=== PATIENT | female | born 1975 | race Caucasian/White ===

== ENCOUNTER → 2017-03-20 | Day surgery (SDC) | payer OTHER ==
[~2017-03-20] VITALS: Ht 162.6 cm; Wt 63.5 kg
--- NOTE | 2017-03-20 11:33 | Operative Report ---
Operative/Inv Procedure Report Surgery Date: 03/20/17 Name of Procedure: Excision displaced fracture right small finger proximal phalangeal head (ulnar condyle). Pre-Operative Diagnosis: Displaced fracture ulnar condyle right small finger proximal phalanx. Post-Operative Diagnosis: Same. Estimated Blood Loss: scant Surgeon/Biological Scientist: SULTANA SCOTT MD Anesthesia: laryngeal mask airway Monitors: EKG/BP/Oxygen Saturation/BIS IV Fluids: Lactated Ringer's. Implants: None. Urine Output: None. Drains: None. Specimens: Ulnar condyle displaced proximal phalanx fracture fragments sent to pathology for histopathological documentation. Microbiology: None. Tourniquet: 17 minutes at 250 mmHg. Complications: None known. Condition: Stable. Operative Indication: The patient is a 41-year-old [id number] female who sustained a trip and fall in a gym jamming the tip of the right small finger on the ground to prevent herself from falling. She did have immediate small finger pain and developed swelling and bruising shortly thereafter. She was eventually seen in the [facility] emergency room where x-rays revealed a fracture of the ulnar condyle of the right small finger proximal phalanx. The patient's finger was splinted with an AlumaFoam finger splint. She followed up with me in the office on an outpatient basis. I did recommend that we get a CAT scan of the finger to better delineate the size and position of the displaced fracture fragment which appeared to be lying against the volar cortex of the distal aspect of the proximal phalanx roughly at the level of the distal shaft-neck junction. The CAT scan did confirm the impression from plain x-rays that the displaced fracture fragment was displaced proximally and volarly against the volar cortex of the distal end of the proximal phalanx. The fracture fragment measured 5 mm in its largest dimension. At this time I did discuss the risks and benefits and expected outcomes of nonoperative noninterventional management with short-term splint immobilization for comfort followed by early mobilization of the finger in an attempt to minimize finger joint stiffness. I did indicate to the patient that I thought that the displaced fracture fragment which was on CAT scan tenting the flexor tendons superficial to the fracture fragment that the fracture fragment would quite probably result in problems with flexor tendon excursion and function. We did therefore discuss attempting to reduce and repair the fracture fragment versus removing the fracture fragment. I did indicate to the patient that I thought that the fracture fragment was too small for me to successfully accomplish a satisfactory reduction and fixation of the fracture fragment back to the ulnar condyle donor site at the distal end of the proximal phalanx. I did therefore recommend surgical excision of the fragment to minimize its effect on the flexor tendon function. I did indicate to the patient that the loss of this ulnar condyle fracture fragment could certainly result in posttraumatic arthritis in the long-term due to the intra-articular nature of the fracture fragment itself. I did also indicate to the patient that she could potentially have some instability due to loss of support of that side of the joint by the bone and cartilage fragment. I did indicate to the patient that with these risks in mind I did feel that the best option for her would be to retrieve the fracture fragment from below the flexor tendons. All the patient's questions were answered at length. She did wish to move forward with surgery and surgical consent was obtained. Operative/Procedure Note Note: The patient was brought to the operating room and placed on the operating table in the supine position. All bony prominences were well-padded. A dose of IV antibiotics were given for infection prophylaxis. General. anesthesia via LMA was induced by the anesthesiologist. A well-padded tourniquet was then applied to the proximal portion of the right arm. The mini C-arm was brought in and we did confirm that we could adequately image the small finger. The right upper extremity was then prepped and draped in the usual sterile fashion. The patient's small finger was marked for a planned direct ulnar approach to the small finger PIP joint and proximal aspect of the middle phalanx and distal two thirds of the proximal phalanx. Once the skin was marked the extremity was exsanguinated and then the pneumatic tourniquet was inflated to a pressure of 250 moment is mercury. The skin incision was made sharply with a scalpel. After that dissection was with blunt tipped scissors to come down through the subcutaneous tissues. We did identify the ulnar digital nerve which was freed up with blunt dissection and retracted and protected for the remainder of the case. We continued now to dissect deeper this time with a deep scalpel blade coming down onto the lateral mid border of the distal one half of the proximal phalanx. I dissected in subperiosteal fashion to elevate the flexor tendons along with the flexor tendon sheath. This allowed me to gain visualization of the space deep to the flexor tendons. I did visualize the displaced ulnar condyle fracture fragment sitting in position against the volar cortex of the proximal phalanx at the level of the distal shaft and neck junction. The fracture fragment was removed with a micropituitary. Grossly the fracture fragment appeared to be of the dimensions that were appreciated and then best measured on x-ray followed by CAT scan. This fracture fragment was placed into formalin and passed off the table to be sent to pathology for histopathological documentation. We next irrigated copiously the space deep to the flexor tendons in their sheath extending as far distally as I could towards the donor site at the ulnar condyle of the head of the proximal phalanx. After this was accomplished the flexor tendon sheath was then sutured back down to the surrounding soft tissues making sure to protect the ulnar digital nerve. This suture repair was performed using 4-0 Mersilene placed in interrupted simple fashion. The tourniquet was deflated. Hemostasis was achieved with manual pressure and electrocautery. The subcutaneous tissues were then irrigated again. The soft tissue repair from here consisted of direct approximation of the skin margins using 3-0 Prolene placed in interrupted simple fashion. I injected some quarter percent Marcaine without epinephrine proximal to the wound and into the volar distal palm as a digital nerve block to provide postop pain relief. The wound was washed and dried. Adaptic dressing was placed over the suture line followed by sterile gauze dressing which was held in place with sterile gauze wrap followed by an Basil bandage. The right upper extremity was then placed into a Satya pillow for elevation. The patient was awakened from general anesthesia and then transferred to the stretcher and brought to the recovery room in stable condition having tolerated the procedure well.
== END ==
LOC: STS 01:22
DX: S62.616A Displaced fracture of proximal phalanx of right little finger, initial encounter for closed fracture (principal); W01.0XXA Fall on same level from slipping, tripping and stumbling without subsequent striking against object, initial encounter; F17.200 Nicotine dependence, unspecified, uncomplicated
CPT/HCPCS: 81025; 88305; J0131; J0690; J2250